=== PATIENT | female | born 1930 | race Hispanic/Latino ===

== ENCOUNTER 2018-05-15 15:59 | Emergency (ER) | payer MEDICARE, OTHER ==
[2018-05-15 16:12] VITALS: BP 165/74; PULSE 78; RESP 18; TEMP 98.6; O2SAT 98
--- NOTE | 2018-05-15 16:57 | C.PDOC ---
History Of Present Illness L THROAT FB SENSATION SINCE YEST. PS ATE "EITHER VILLATORO PIT OR SHRIMP", FELT PAIN BENEATH L JAW/FRONT OF NECK. LOCALIZED, WORSE W SWALLOWING. PS ABLE TO SWALLOW LIQUID WO DIFF. NO SORE THROAT, FEVER, OTHER ASSOC SX. HO GOITER EXAM NAD NONTOXIC HEENT THROAT CLEAR; NO STRIDOR +MILD ENLARGE L SUBMAND/SUBMENTAL NECK MASS W LOCAL TEND, MOBILE, FIRM POSSIBLE NODE. NO CERVICAL, AURICULAR, CLAVICULAR NODES NECK SUPPLE REMAINDER NEG MDM NO S/S ACUTE FB ESOPH OBSTRUCTION. PROBABLE INFLAMED NODE. NECK, CXR NEG. PT OFFERED CT SCAN AND LABS FOR MORE DETAILED EVAL BUT DOESNT WANT AT THIS TIME. NSAID, STEROID. ADVISED FU PMD, RETURN IF WORSENING SYMPTOMS. Time Seen by Provider: 05/15/18 16:39 Chief Complaint (Nursing): ENT Problem History Per: Patient History/Exam Limitations: no limitations Onset/Duration Of Symptoms: Days Current Symptoms Are (Timing): Still Present Past Medical History Reviewed: Historical Data, Nursing Documentation, Vital Signs Vital Signs: Last Vital Signs Temp 98.6 F 05/15/18 16:10 Pulse 78 05/15/18 16:10 Resp 18 05/15/18 16:10 BP 165/74 H 05/15/18 16:10 Pulse Ox 98 05/15/18 17:33 - Medical History PMH: Anxiety, Cardia Arrhythmia (svt/ ? flutter/fib), HTN, Hypothyroidism Denies: Chronic Kidney Disease Surgical History: No Surg Hx Family History: States: No Known Family Hx - Social History Hx Alcohol Use: No Hx Substance Use: No - Immunization History Hx Tetanus Toxoid Vaccination: No Review Of Systems Except As Marked, All Systems Reviewed And Found Negative. Constitutional: Negative for: Fever, Chills ENT: Positive for: Other (Foreign body sensation in lower throat ). Negative for: Throat Pain Respiratory: Negative for: Cough, Shortness of Breath Gastrointestinal: Negative for: Nausea Physical Exam - Physical Exam Appears: Non-toxic, No Acute Distress Head: Atraumatic, Normacephalic Eye(s): bilateral: Normal Inspection, PERRL, EOMI Throat: Mass (+MILD ENLARGE L SUBMAND/SUBMENTAL NECK MASS W LOCAL TEND, MOBILE, FIRM POSSIBLE NODE. NO CERVICAL, AURICULAR, CLAVICULAR NODES), Other (Normal, no stridor ) Neck: Normal ROM, Supple Chest: Symmetrical, No Deformity Cardiovascular: Rhythm Regular Respiratory: Normal Breath Sounds, No Rales, No Rhonchi, No Wheezing Extremity: Normal ROM Neurological/Psych: Oriented x3 ED Course And Treatment O2 Sat by Pulse Oximetry: 98 (RA) Pulse Ox Interpretation: Normal - Radiology CXR: Interpreted by Me, Viewed By Me Nexus Criteria: Negative Progress Note: CXrays and XRays of neck ordered and reviewed by me. Xrays negative. Patient given Rx for Motrin and Ibuprofen. Patient instructed to follow up with PMD for further evaluation. Medical Decision Making Medical Decision Making: NO S/S ACUTE FB ESOPH OBSTRUCTION. PROBABLE INFLAMED NODE. NECK, CXR NEG. PT OFFERED CT SCAN AND LABS FOR MORE DETAILED EVAL BUT DOESNT WANT AT THIS TIME. NSAID, STEROID. ADVISED FU PMD, RETURN IF WORSENING SYMPTOMS. Disposition Counseled Patient/Family Regarding: Studies Performed, Diagnosis, Need For Followup, Rx Given - Disposition Referrals: [facility] [Outside] [facility] [Outside] YOUR,PMD [Other] Disposition: HOME/ ROUTINE Disposition Time: 17:01 Condition: IMPROVED Additional Instructions: YOU HAVE BEEN OFFERED A CT SCAN AND LAB TESTING. FOLLOW UP WITH YOUR PMD FOR FURTHER EVALUATION, RETURN IF WORSENING SYMPTOMS. Prescriptions: Acetaminophen [Infants' Pain-Fever] 650 mg PO Q6 #1 oral.susp Ibuprofen [Child Ibuprofen] 400 mg PO Q6 #1 oral.susp Forms: [facility] (Tai[place]ese), General Discharge Instructions - Clinical Impression Clinical Impression: Lymphadenopathy, submandibular
--- NOTE | 2018-05-15 18:02 | RAD ---
HISTORY: FB SENSATION COMPARISON: No prior. TECHNIQUE: Chest PA and lateral FINDINGS: LUNGS: Suspect mild atelectatic changes seen in the mid to lower lung cifuentes with increased interstitial markings. Rule out developing interstitial infiltrates or possibility of developing or chronic compensated pulmonary edema/ CHF. . There is a right paratracheal density with minimal deviation of the trachea to the left side. Findings may be due to ectatic great vessels. Correlation with ultrasound of the thyroid gland to exclude a thyroid border. PLEURA: No significant pleural effusion identified. No pneumothorax apparent. CARDIOVASCULAR: Cardiomegaly. Aorta ectatic and uncoiled. OSSEOUS STRUCTURES: No significant abnormalities. VISUALIZED UPPER ABDOMEN: Normal. OTHER FINDINGS: None. IMPRESSION: Suspect mild atelectatic changes seen in the mid to lower lung cifuentes with increased interstitial markings. Rule out developing interstitial infiltrates or possibly developing or chronic compensated pulmonary edema/CHF. . There is a right paratracheal density with minimal deviation of the trachea to the left side. Findings may be due to ectatic great vessels. Correlation with ultrasound of the thyroid gland to exclude a thyroid border. Cardiomegaly. Note that this report was placed in PA review folder for followup
--- NOTE | 2018-05-15 18:43 | RAD ---
PROCEDURE: Radiographs of the neck (soft tissue). HISTORY: FB SENSATION COMPARISON: None. TECHNIQUE: Frontal and Lateral Radiographs of the neck, optimized for soft tissue visualization. FINDINGS: SOFT TISSUES: Unremarkable. No radiopaque foreign body seen. CERVICAL SPINE: Mild degenerative spondylosis of the cervical spine. Slight anterior subluxation C3 over C4 and slight posterior subluxation C4 over C5. Minimal anterior subluxation C2 over C3. OTHER FINDINGS: No definitive radiopaque foreign bodies are identified. Calcification changes in the soft tissues subjacent to the hyoid bone likely representing calcified thyroid cartilage. IMPRESSION: No definitive radiopaque foreign
== END 2018-05-15 17:15 | disposition home or self-care (01) ==
LOC: C.ER 15:59
DX: R59.1 Generalized enlarged lymph nodes (principal)
CPT/HCPCS: 70360; 71046; 96372; 99283; J1100; J1885